=== PATIENT | male | born 1950 | race Caucasian/White ===

== ENCOUNTER 2021-04-28 11:03 | Emergency (ER) | payer MEDICARE, SELFPAY ==
--- NOTE | ~2021-04-28 | CT_ITS ---
EXAMINATION: CT abdomen pelvis w con INDICATION: Lower abdominal pain TECHNIQUE: Computed tomographic images of the abdomen and pelvis were obtained after the administrati on of 100 cc of Omnipaque 350 intravenous contrast. The dose-length product (DLP) was 832.64 mGy-cm. Automated exposure control and iterative reconstruction technique were employed. COMPARISON: None available FINDINGS: The lung bases are clear. The heart size is normal. The gallbladder is surgically absent. T he liver, spleen, pancreas, and adrenal glands are normal. 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 Cysts of the left kidney measure up to 5 mm. There is a 2 mm nonobstructing stone of the left kidney lower pole. There is calcified atherosclerosis of the aorta and many of the other arterie s. The appendix is normal. No pathologically enlarged abdominal or pelvic lymph nodes are identified. There is no free intraperitoneal gas or evidence of bowel obstruction. Streak artifact from right hi p surgery partially obscures visualization of the pelvis. Prostatomegaly is noted. There is mild lumb ar spondylosis. IMPRESSION: 1. No CT correlate for the patient's symptoms. Reviewed, dictated and finalized at location A.
[2021-04-28 11:26] VITALS: BP 161/77; PULSE 62; RESP 18; TEMP 37.3; O2SAT 100
[2021-04-28 11:38] LABS: Basophils Percent Auto 0.2 % (0.2-1.2); Hematocrit 48.1 % (42.0-52.0); Hemoglobin 15.8 g/dL (14.0-18.0); Immature Granulocyte Absolute 0.03 K/mm3 (0.00-0.031); Immature Granulocyte Percent A 0.3 % (0-0.5); Lymphocytes Absolute Auto 1.57 K/mm3 (0.9-3.2); Lymphocytes Percent Auto 17.5 % (18.3-44.2); Mean Corpuscular HGB Conc 32.8 g/dl (32-36); Mean Corpuscular Hemoglobin 29.5 pg (26-34); Mean Corpuscular Volume 89.9 fl (80-100); Mean Platelet Volume 11.3 fl (7.4-10.4); Monocytes Absolute Auto 0.6 K/mm3 (0.1-0.6); Monocytes Percent Auto 6.4 % (2.6-8.5); Neutrophils Absolute Auto 6.8 K/mm3 (1.3-6.7); Neutrophils Percent Auto 75.6 % (45.5-73.1); Platelet Count Result 164 k/mm3 (150-375); Red Blood Count 5.35 M/mm3 (4.6-6.20)
[2021-04-28 11:49] LABS: Alanine Aminotransferase 33 U/L (4-50); Alkaline Phosphatase 34 U/L (38-126); Anion Gap 13 mmol/L (8-16); Aspartate Amino Transferase 26 U/L (17-59); Bilirubin,Total 0.9 mg/dL (0.2-1.3); Blood Urea Nitrogen 15 mg/dL (9-20); Calcium 9.7 mg/dL (8.4-10.2); Carbon Dioxide 27 mmol/L (22-30); Chloride 96 mmol/L (98-107); Estimated CRCL calculation 70 ml/min; Estimated Glomerular Filt Rate > 60; Glucose 235 mg/dL (65-110); Lipase 49 U/L (23-300); Potassium 4.7 mmol/L (3.4-5.0); Sodium 136 mmol/L (137-145)
[2021-04-28 11:55] LABS: Add Urine Microscopic? YES; Appearance Urine Clear (Clear); Bilirubin Urine Negative (Negative); Blood Urine Negative (Negative); Color Urine Yellow (Yellow); Glucose Urine UA 3+ mg/dL (Negative); Ketones Urine Negative (Negative); Leukocyte Esterase Ur Negative LEU/UL (Negative); Mucus Urine Moderate /lpf; Nitrate Urine Negative (Negative); Protein Urine 2+ mg/dL (Negative); RBC Urine 0-2 /hpf (0-2); Specific Grav Ur 1.026 (1.001-1.035); Squamous Epithelial Cell Urine Rare /hpf (Few); Urobilinogen Urine Negative mg/dL (<2.0); WBC Urine 0-3 /hpf
--- NOTE | 2021-04-28 12:06 | ED.ABDPAIN ---
HPI - Abdominal Pain General Chief Complaint: Abdominal Pain Stated Complaint: abd pain Time Seen by Provider: 04/28/21 11:42 Source: patient and RN notes reviewed Mode of arrival: ambulatory Limitations: no limitations History of Present Illness HPI narrative: This is a 70 year old male with history of DM, hypertension who presents for evaluation of nausea and lower abdominal discomfort. He states starting over yesterday morning at 1 am he had severe lower abdominal pain. He had associated loose stools and nausea. He was able to go back to sleep at that time. He reports yesterday during the day his pain improved. His pain became severe again last night. He was unable to get comfortable last night so he was concerned. He reports intermittent belching and flatus with nausea. HE denies fever, chills or urinary symptoms. He denies history of diverticulitis. He took Aleve for his pain. MD elicited complaint: abdominal pain Related Data Home Medications Medication Instructions Recorded Confirmed aspirin 81 mg PO DAILY 04/28/21 escitalopram oxalate 10 mg PO DAILY 04/28/21 04/28/21 fexofenadine [Richa Allergy] 60 mg PO Q12H 04/28/21 glimepiride 2 mg PO DAILY 04/28/21 lisinopril 5 mg PO DAILY 04/28/21 metformin 500 mg PO QID 04/28/21 omeprazole 20 mg PO DAILY 04/28/21 simvastatin 40 mg PO DAILY 04/28/21 Allergies Allergy/AdvReac Type Severity Reaction Status Date / Time No Known Allergies Allergy Verified 04/28/21 11:44 Review of Systems Review of Systems: All systems reviewed & are unremarkable except as noted in HPI and below PMFSH Past Medical History Medical History (Updated 04/28/21 @ 15:49 by Sridevi Child MD) Renal cyst Surgical History Surgical History (Updated 04/28/21 @ 15:46 by Sridevi Child MD) History of hip surgery Social History Social History (Updated 04/28/21 @ 15:46 by Sridevi Child MD) Smoking status: Never smoker Exam Const: General: no acute distress and alert Orientation/consciousness: patient oriented x3 Eyes: EOM: EOMs intact bilaterally Resp: Effort & Inspection: normal respiratory effort and no retractions Auscultation: clear to auscultation bilaterally Cardio: Rate: regular rate Rhythm: regular rhythm Heart sounds: no murmurs GI: GI Palp: Yes Soft to palpation, Yes Tenderness to palpation present (GI) (bilateral lower quadrant, mild, no guarding) and No Rigid due to palpation Auscultation: normal bowel sounds Skin: General skin exam: normal color Rashes: no rashes Neuro: General: patient oriented x3, moves all extremities and CN's II-XI intact bilaterally Psych: Mental Status: mental status grossly normal Affect: normal affect Course Reevaluation(s) Reevaluation #1: I reviewed labs and CT with patient. His abdominal exam is benign. He understands and he is stable for discharge home. Date: 04/28/21 Time: 15:47 Vital Signs Vital signs: Vital Signs Temperature 99.2 F 04/28/21 11:26 Pulse Rate 62 04/28/21 11:26 Respiratory Rate 18 04/28/21 11:26 Blood Pressure 161/77 H 04/28/21 11:26 Pulse Oximetry 100 04/28/21 11:26 Temperature 99.2 F 04/28/21 11:26 Pulse Rate 63 04/28/21 16:05 Respiratory Rate 16 04/28/21 16:05 Blood Pressure 160/66 H 04/28/21 16:05 Pulse Oximetry 97 04/28/21 16:05 MDM - Abdominal Pain Lab Data Attestation: I reviewed the patient's lab results. Result diagrams: 04/28/21 11:32 04/28/21 11:32 Labs: Lab Results 04/28/21 04/28/21 04/28/21 Range/Units 11:32 11:32 11:40 WBC 9.0 (4.5-10.0) K/mm3 RBC 5.35 (4.6-6.20) M/mm3 Hgb 15.8 (14.0-18.0) g/dL Hct 48.1 (42.0-52.0) % MCV 89.9 (80-100) fl MCH 29.5 (26-34) pg MCHC 32.8 (32-36) g/dl RDW 13.0 (11.5-14.5) % Plt Count 164 (150-375) k/mm3 MPV 11.3 H (7.4-10.4) fl Immature Gran % (Auto) 0.3 (0-0.5) % Neut % (Auto) 75.6 H
[2021-04-28] MEDS: SODIUM CHLORIDE 0.9% IV 1,000 ML 999 ML IV CONT (12:14)
[2021-04-28 14:14] VITALS: BP 165/71; PULSE 67; RESP 16; O2SAT 100
[2021-04-28 16:05] VITALS: BP 160/66; PULSE 63; RESP 16; O2SAT 97
== END 2021-04-28 16:06 | disposition home or self-care (01) ==
PROVIDERS: Emergency Provider General Practice
DX: R10.32 Left lower quadrant pain (principal); R10.31 Right lower quadrant pain; E11.9 Type 2 diabetes mellitus without complications; I10 Essential (primary) hypertension; Z79.82 Long term (current) use of aspirin; Z79.84 Long term (current) use of oral hypoglycemic drugs
CPT/HCPCS: 36415; 74177; 80053; 81001; 83690; 85025; 96360; 96361; 99284; J7030; Q9967